=== PATIENT | male | born 1970 | race Two or more races ===

== ENCOUNTER 2023-11-16 10:04 | Emergency (ER) | payer BC, OTHER ==
[~2023-11-16] VITALS: Ht 177.8 cm; Wt 83.9 kg
[2023-11-16 10:15] VITALS: BP 132/84; TEMP 98.4
[2023-11-16] MEDS ORDERED: MOXI3DRO10 EACHEYE (10:20)
[2023-11-16 10:30] VITALS: O2SAT 100
== END 2023-11-16 10:31 | disposition home or self-care (01) ==
LOC: ER 10:06
DX: H10.9 Unspecified conjunctivitis (principal); Z79.899 Other long term (current) drug therapy

== ENCOUNTER 2025-02-07 00:25 | Emergency (ER) | payer BC, OTHER ==
[~2025-02-07] VITALS: Ht 177.8 cm; Wt 79.4 kg
[~2025-02-07 00:25] MED LIST: MOXI3DRO10 EACHEYE
[2025-02-07 01:32] VITALS: BP 132/73; TEMP 98.9
[2025-02-07] MEDS ORDERED: CIPROFLOXACIN HCL 500 MG TABLET ONE (01:44)
[2025-02-07] MEDS ORDERED: AZITHROMYCIN 250 MG TABLET ONE (01:44)
[2025-02-07 02:00] VITALS: O2SAT 99
[2025-02-07] MEDS: AZITHROMYCIN 250 MG TABLET PO ONE (02:00)
[2025-02-07] MEDS: CIPROFLOXACIN HCL 250 MG TABLET PO ONE (02:00)
== END 2025-02-07 02:47 | disposition home or self-care (01) ==
LOC: ER 00:27
DX: Z13.89 Encounter for screening for other disorder (principal); Z60.2 Problems related to living alone; Z79.899 Other long term (current) drug therapy

== ENCOUNTER 2025-05-18 04:15 | Emergency (ER) | payer BC, OTHER ==
[~2025-05-18] VITALS: Ht 177.8 cm; Wt 79.4 kg
[2025-05-18] MEDS ORDERED: AMOX-430 PO (05:34)
[2025-05-18 06:02] VITALS: BP 132/84; TEMP 98.6; O2SAT 98
== END 2025-05-18 06:02 | disposition home or self-care (01) ==
LOC: ER 04:19
DX: S02.2XXA Fracture of nasal bones, initial encounter for closed fracture (principal); Z60.2 Problems related to living alone; Y04.0XXA Assault by unarmed brawl or fight, initial encounter; Y93.89 Activity, other specified; Y92.89 Other specified places as the place of occurrence of the external cause; Y99.8 Other external cause status
CPT/HCPCS: 70486-TC